=== PATIENT | male | born 2005 | race Caucasian/White ===

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

== ENCOUNTER 2025-01-15 12:41 | Outpatient (CLI) | payer BC, SELFPAY ==
--- NOTE | 2025-01-15 | ECHO_ITS ---
Patient Info Name: Jose Berry Age: 19 years : 2005 Gender: Male Ht: 72 in Wt: 127 lbs BSA: 1.69 m2 HR: 72 bpm BP: 142 / 82 mmHg Heart Rhythm: Sinus Rhythm Technical Quality: Fair Exam Date: 01/15/2025 1:02 PM Exam Location: Echo Lab Patient Status: Outpatient Admit Date: 01/15/2025 Staff Ordering Physician: MitchellRadha PA-C Detective [place]: Dora Zhang RDCS Attending Provider: Mitchell*Radha Wagn PA-C Exam Type: CA echo doppler color flow Study Info Indications - ATYPICAL CHEST PAIN Complete two-dimensional, color flow and Doppler transthoracic echocardiogram is performed. Summary 1. Complete two-dimensional, color flow and Doppler transthoracic echocardiogram is performed. 2. Left ventricular chamber dimension is normal. 3. Left ventricular systolic function is normal, estimated at 60-65%. 4. The left ventricular diastolic function is normal. 5. E/e' 5 is not elevated. Left Ventricle E/e' 5 is not elevated. Left ventricular chamber dimension is normal. Left ventricular systolic function is normal, estimated at 60-65%. The left ventricular diastolic function is normal. Right Ventricle Right ventricular systolic function is normal and with normal TAPSE 2.2 cm. Right ventricular chamber dimension is normal. Left Atria Left atrial chamber dimension is normal. Right Atria Right atrial chamber dimension is normal. Aortic Valve The aortic valve is trileaflet. There is no aortic valve stenosis. There is no aortic valve regurgitation. Pulmonic Valve There is no pulmonic regurgitation. Mitral Valve There is no mitral valve stenosis. There is no mitral valve regurgitation. Tricuspid Valve There is no tricuspid valve regurgitation. Pericardium/Pleural There is no pericardial effusion. Inferior Vena Cava Normal inferior vena cava with >50% collapse upon inspiration consistent with normal right atrial pressure, 5 mmHg. Aorta The aortic root size at the sinus of Valsalva is normal. Left Ventricular Outflow Tract Name Value Normal LVOT 2D LVOT Diameter 2.0 cm LVOT Doppler LVOT Peak Gradient 4 mmHg LVOT Mean Gradient 2 mmHg LVOT VTI 20 cm LVOT VTI/AV VTI Ratio 1.0 LVOT Stroke Volume 66 ml LVOT CO 4.7 l/min LVOT CI 2.8 l/min/m2 Pulmonic Valve Name Value Normal RVOT Doppler RVOT Peak Gradient 3 mmHg PV Doppler PV Peak Gradient 3 mmHg Mitral Valve Name Value Normal MV Doppler MV Decel Braxton 829 cm/s2 MV PHT 31 ms MV Area (PHT) 7.0 cm2 MV Diastolic Function MV E Peak Velocity 89 cm/s MV A Peak Velocity 65 cm/s MV E/A 1.4 MV Decel Time 108 ms MV Annular TDI MV E/e' (Septal) 5.2 MV E/e' (Lateral) 5.6 MV E/e' (Average) 5.4 Tricuspid Valve Name Value Normal Estimated PAP/RSVP RA Pressure 5 mmHg Aortic Valve Name Value Normal AV Doppler AV Peak Velocity 106 cm/s AV Peak Gradient 5 mmHg AV Mean Gradient 2 mmHg AV VTI 20 cm AV Area (Cont Eq VTI) 3.2 cm2 AV Area (Cont Eq Edgardo) 3.0 cm2 AV Regurgitation 2D LVOT Area 3.2 cm2 Ventricles Name Value Normal LV Dimensions 2D/MM IVS Diastolic Thickness (2D) 0.7 cm LVID Diastole (2D) 4.3 cm LVIW Diastolic Thickness (2D) 0.8 cm LVID Systole (2D) 2.6 cm LVOT Diameter 2.0 cm LV Mass (2D Cubed) 98.58 g LV Mass Index (2D Cubed) 58 g/m2 Relative Wall Thickness (2D) 0.38 LV Fractional Shortening/Ejection Fraction 2D/MM LV Fractional Shortening (2D) 39 % LV EF (2D Teicholz) 69 % LV Diastolic Volume (4C MOD) 144 ml LV EF (4C MOD) 64 % LV Diastolic Volume (2C MOD) 142 ml LV EF (2C MOD) 58 % LV Diastolic Volume (BP MOD) 146 ml LV Diastolic Volume Index (BP MOD) 86 ml/m2 LV Systolic Volume (BP MOD) 56 ml LV Systolic Volume Index (BP MOD) 33 ml/m2 LV EF (BP MOD) 62 % LV Diastolic Length (4C) 8.8 cm LV Systolic Length (4C) 7.6 cm LV Stroke Volume (4C MOD) 92 ml Atria Name Value Normal LA Dimensions LA Volume (4C A-L) 34 ml LA Volume (BP A-L) 41 ml RA Dimensions RA Area (4C) 10.6 cm2 Report Signatures
--- OUTSIDE RECORDS SUMMARY | 2025-01-15 12:45 | XMS_ITS ---
Author Organization [facility] Address [address] [facility] [address] [place] [address] Care Team Providers Care Vat Tender Name Role Phone Zoraida Spence Unavailable [phone] Vital Signs Height 72.00 in 03/13/2024 Weight 123.80 lbs 03/13/2024 BMI 16.8 kg/m2 03/13/2024 Height-cm 182.88 cm 03/13/2024 Weight-kg 56.15 kg 03/13/2024 Encounters Encounter Location Date Provider Diagnosis [facility] [address] [facility] [address] [place] [address] 03/13/2024 Zoraida Spence Generalized anxiety disorder F41.1 [...] * BARB AYALAOB:2005 ( 18 yo M)Acc No.[id number]:03/13/2024 Progress Notes Patient: AYSHA LEWIS Provider: NERISSA LOCK :2005 A ge:18 Y S ex:Male Date:03/13/2024 Address:[address] [place] [address] [id number] Subjective: * Chief Complaints: * * Medical [...] 03/13/2024 Generated for Kelsi goldberg/Regina/Kalinaitting on: 0 01/15/2025 12:45 PM CDT
--- OUTSIDE RECORDS SUMMARY | 2025-01-15 12:45 | XMS_ITS | Data Portability ---
Author Organization [facility] Address [address] [place] [address] Care Team Providers Care Web[employer] Commerce Consultant Name Role Phone DAVIDRADHA BEARD Primary Care Provider Unavailab le Assessment No assessment recorded. Plan of Treatment Reminders Order Date Submit Date Provider Last Modified By Organization Details Last Modified Time Details Appointments None recorded. Lab lipid panel, serum 2023 024 [facility], [address], [place], [address], 5 09:08:07 CMP, serum or plasma 2023 024 [facility], [address], [place], [address], 5 09:08:09 CBC w/ diff 2023 024 [facility], [address], [place], [address], 5 09:08:10 CBC w/ auto diff 2023 024 [email or web address] 0 [facility], [address], [place], [address], 5 16:38:08 hemoglobin A1c, QN, blood 2023 024 [email or web address] 0 [facility], [address], [place], [address], 5 16:37:37 TSH + free T4, serum 2023 024 [facility], [address], [place], [address], 09:08:08 Referral None recorded. Procedures None recorded. Surgeries None recorded. Imaging XR, chest, 2 view 2024 025 [facility] (Imaging), [facility]0 [facility] [address] [facility], [place], [address], 5 10:13:24 US, echocardiog tony, transthorac ic, complete, w/ color flow [address] (Cardiology & Emg), [address] [facility] [address] [place] [address], [address], 12:22:39 electrocard iogram 2024 025 [email or web address] In-Office Order, Internal Use Only DO Not Attach Compendium DO Not Attach Compendium, Do Not Delete/merge, [id number] 08:21:34 XR, ribs, unilateral 2024 025 [facility] (Imaging), [address] [facility] [address] [place] [address], [address], 5 01:35:25 XR, sternum [address] (Imaging), [address] [facility] [address], [place], [address], 5 09:53:54 Medication Orders clonazepam 0.5 mg tablet 2024 025 [id number], [address] [place] [address], [id number], 14:54:25 Patient TargetsNo targets recorded. Patient InstructionsNo instructions recorded. Reason for Referral Psychiatrist Referral for Mo od disorder Referring Physician: Radha Weldon, Internal Medicine, Encounter Date: 01/06/2025 Results Created Date Observation Date Name Description Value Unit Range Abnormal Flag Note LastModifiedBy Organization Detail LastModifiedTime 12/22/1912/23/2024 LIPID PANEL W/ CHOL/ HDL RATIO cholesterol, total 143 mg/dL 100-16 9 Not Available [facility] ([facility]) [address] [place], [address], 12/23/2024 09:08:07 12/22/19 25 12/23/2024 LIPID PANEL W/ CHOL/ HDL RATIO triglyceride s 54 mg/dL 0-89 Not Available [facility] ([facility]) [address] [place], [address], 12/23/2024 09:08:07 12/22/1912/23/2024 LIPID PANEL W/ CHOL/ HDL RATIO HDL cholesterol 75 mg/dL >39 Not Available [facility] ([facility]) [address] [place], [address], 12/23/2024 09:08:07 12/22/19 25 12/23/2024 LIPID PANEL W/ CHOL/ HDL RATIO VLDL cholesterol petrona 12 mg/dL 5-40 Not Available [facility] ([facility]) [address] [place], [address], 12/23/2024 09:08:07 12/22/19 25 12/23/2024 LIPID PANEL W/ CHOL/ HDL RATIO LDL chol calc ([facility]) 56 mg/dL 0-109 Not Available [facility] ([facility]) [address] [place], [address], 12/23/2024 09:08:07 12/22/19 25 12/23/2024 LIPID PANEL W/ CHOL/ HDL RATIO T. chol/HDL ratio 1.9 ratio 0.0-5. 0 T. Chol/ HDL Ratio Men Women 1/2 Avg.R isk 3.4 3.3 Avg.R isk 5.0 4.4 2X Avg.R isk 9.6 7.1 3X Avg.R isk 23.4 11.0 Not Available [facility] ([facility]) [address] [place], [address], 12/23/2024 09:08:07 12/22/19 25 12/23/2024 TSH+F REE T4 TSH 1.420 uIU/m L 0.450- 4.500 Not Available [facility] ([facility]) [address] [place], [address], 12/23/2024 09:08:08 12/22/19 25 12/23/2024 TSH+F REE T4 T4,free(dire ct) 1.59 NG/dL 0.93-1 .60 Not Available [facility] ([facility]) [address] [place], [address], 12/23/2024 09:08:08 12/22/19 25 12/23/2024 COMP. METAB OLIC PANEL (14) glucose 101 mg/dL 70-99 above high normal Not Available [facility] ([facility]) [address] [place], [address], 12/23/2024 09:08:09 12/22/19 25 12/23/2024 COMP. METAB OLIC PANEL (14) BUN 10 mg/dL 6-20 Not Available [facility] ([facility]) [address] [place], [address], 12/23/2024 09:08:09 12/22/19 25 12/23/2024 COMP. METAB OLIC PANEL (14) creatinine 0.86 mg/dL 0.76-1 .27 Not Available [facility] ([facility]) [address] [place], [address], 12/23/2024 09:08:09 12/22/19 25 12/23/2024 COMP. METAB OLIC PANEL (14) eGFR 128 mL/mi n/1.7 3 >59 Not Available [facility] ([facility]) [address] [facility], [place], [address], 12/23/2024 09:08:09 12/22/19 25 12/23/2024 COMP. METAB OLIC PANEL (14) BUN/creatini ne ratio 12 9-20 Not Available [facility] ([facility]) [address] [facility], [place], [address], 12/23/2024 09:08:09 12/22/19 25 12/23/2024 COMP. METAB OLIC PANEL (14) sodium 138 mmol/ L 134-14 4 Not Available [facility] ([facility]) [address] [facility], [place], [address], 12/23/2024 09:08:09 12/22/19 25 12/23/2024 COMP. METAB OLIC PANEL (14) potassium 4.3 mmol/ L 3.5-5. 2 Not Available [facility] ([facility]) [address] [facility], [place], [address], 12/23/2024 09:08:09 12/22/19 25 12/23/2024 COMP. METAB OLIC PANEL (14) chloride 100 mmol/ L 96-106 Not Available [facility] ([facility]) [address] [facility], [place], [address], 12/23/2024 09:08:09 12/22/19 25 12/23/2024 COMP. METAB OLIC PANEL (14) carbon dioxide, total 23 mmol/ L 20-29 Not Available [facility] ([facility]) [address] [place], [address], 12/23/2024 09:08:09 12/22/19 25 12/23/2024 COMP. METAB OLIC PANEL (14) calcium 9.7 mg/dL 8.7-10 .2 Not Available [facility] ([facility]) [address], [place], [address], 12/23/2024 09:08:09 12/22/19 25 12/23/2024 COMP. METAB OLIC PANEL (14) protein, total 6.8 g/dL 6.0-8. 5 Not Available [facility] ([facility]) [address] [place], [address], 12/23/2024 09:08:09 12/22/19 25 12/23/2024 COMP. METAB OLIC PANEL (14) albumin 4.9 g/dL 4.3-5. 2 Not Available [facility] ([facility]) [address] [place], [address], 12/23/2024 09:08:09 12/22/19 25 12/23/2024 COMP. METAB OLIC PANEL (14) globulin, total 1.9 g/dL 1.5-4. 5 Not Available [facility] ([facility]) [address], [place], [address], 12/23/2024 09:08:09 12/22/19 25 12/23/2024 COMP. METAB OLIC PANEL (14) bilirubin, total 0.7 mg/dL 0.0-1. 2 Not Available [facility] ([facility]) [address], [place], [address], 12/23/2024 09:08:09 12/22/19 25 12/23/2024 COMP. METAB OLIC PANEL (14) alkaline phosphatase 88 IU/L 51-125 Not Available [facility] ([facility]) [address] [place], [address], 12/23/2024 09:08:09 12/22/19 25 12/23/2024 COMP. METAB OLIC PANEL (14) AST (SGOT) 18 IU/L 0-40 Not Available [facility] ([facility]) [address] [place], [address], 12/23/2024 09:08:09 12/22/19 25 12/23/2024 COMP. METAB OLIC PANEL (14) ALT (SGPT) 12 IU/L 0-44 Not Available [facility] ([facility]) [address] [facility], [place], [address], 12/23/2024 09:08:09 12/22/1912/23/2024 CBC/D /PLT W/ REFLE X SUMA TIN WBC 5.7 x10e3 /uL 3.4-10 .8 Not Available [facility] ([facility]) [address] [place], [address], 12/23/2024 09:08:09 12/22/1912/23/2024 CBC/D /PLT W/ REFLE X SUMA TIN RBC 5.29 x10e6 /uL 4.14-5 .80 Not Available [facility] ([facility]) [address] [facility], [place], [address], 12/23/2024 09:08:09 12/22/1912/23/2024 CBC/D /PLT W/ REFLE X SUMA TIN hemoglobin 15.4 g/dL 13.0-1 7.7 Not Available [facility] ([facility]) [address] [place], [address], 12/23/2024 09:08:09 12/22/1912/23/2024 CBC/D /PLT W/ REFLE X SUMA TIN hematocrit 47.5 % 37.5-5 1.0 Not Available [facility] ([facility]) [address] [place], [address], 12/23/2024 09:08:09 12/22/1912/23/2024 CBC/D /PLT W/ REFLE X SUMA TIN MCV 90 fL 79-97 Not Available [facility] ([facility]) [address] [place], [address], 12/23/2024 09:08:09 12/22/19 25 12/23/2024 CBC/D /PLT W/ REFLE X SUMA TIN MCH 29.1 pg 26.6-3 3.0 Not Available [facility] ([facility]) [address] [facility], [place], [address], 12/23/2024 09:08:09 12/22/19 25 12/23/2024 CBC/D /PLT W/ REFLE X SUMA TIN MCHC 32.4 g/dL 31.5-3 5.7 Not Available [facility] ([facility]) [address] [facility], [place], [address], 12/23/2024 09:08:09 12/22/1912/23/2024 CBC/D /PLT W/ REFLE X SUMA TIN RDW 12.6 % 11.6-1 5.4 Not Available [facility] ([facility]) [address] [facility], [place], [address], 12/23/2024 09:08:09 12/22/1912/23/2024 CBC/D /PLT W/ REFLE X SUMA TIN platelets 330 x10e3 /uL 150-45 0 Not Available [facility] ([facility]) [address] [facility], [place], [address], 12/23/2024 09:08:09 12/22/1912/23/2024 CBC/D /PLT W/ REFLE X SUMA TIN neutrophils 53 % notest ab. Not Available [facility] ([facility]) [address] [facility], [place], [address], 12/23/2024 09:08:09 12/22/19 25 12/23/2024 CBC/D /PLT W/ REFLE X SUMA TIN lymphs 35 % notest ab. Not Available [facility] ([facility]) [address] [facility], [place], [address], 12/23/2024 09:08:09 12/22/19 25 12/23/2024 CBC/D /PLT W/ REFLE X SMUA TIN monocytes 9 % notest ab. Not Available [facility] ([facility]) [address] [facility], [place], [address], 12/23/2024 09:08:09 12/22/19 25 12/23/2024 CBC/D /PLT W/ REFLE X SUMA TIN eos 2 % notest ab. Not Available [facility] ([facility]) [address] [facility], [place], [address], 12/23/2024 09:08:09 12/22/19 25 12/23/2024 CBC/D /PLT W/ REFLE X SUMA TIN basos 1 % notest ab. Not Available [facility] ([facility]) [address] [facility], [place], [address], 12/23/2024 09:08:09 12/22/19 25 12/23/2024 CBC/D /PLT W/ REFLE X SUMA TIN neutrophils (absolute) 3.0 x10e3 /uL 1.4-7. 0 Not Available [facility] ([facility]) [address] [facility], [place], [address], 12/23/2024 09:08:09 12/22/19 25 12/23/2024 CBC/D /PLT W/ REFLE X SUMA TIN lymphs (absolute) 2.0 x10e3 /uL 0.7-3. 1 Not Available [facility] ([facility]) [address] [place], [address], 12/23/2024 09:08:09 12/22/19 25 12/23/2024 CBC/D /PLT W/ REFLE X SUMA TIN monocytes(ab solute) 0.5 x10e3 /uL 0.1-0. 9 Not Available [facility] ([facility]) [address] [place], [address], 12/23/2024 09:08:09 12/22/1912/23/2024 CBC/D /PLT W/ REFLE X SUMA TIN eos (absolute) 0.1 x10e3 /uL 0.0-0. 4 Not Available [facility] ([facility]) [address] [facility], [place], [address], 12/23/2024 09:08:09 12/22/19 25 12/23/2024 CBC/D /PLT W/ REFLE X SUMA TIN baso (absolute) 0.1 x10e3 /uL 0.0-0. 2 Not Available [facility] ([facility]) [address] [facility], [place], [address], 12/23/2024 09:08:09 12/22/19 25 12/23/2024 CBC/D /PLT W/ REFLE X SUMA TIN immature granulocytes 0 % notest ab. Not Available [facility] ([facility]) [address] [facility], [place], [address], 12/23/2024 09:08:09 12/22/1912/23/2024 CBC/D /PLT W/ REFLE X SUMA TIN immature grans (abs) 0.0 x10e3 /uL 0.0-0. 1 Not Available [facility] ([facility]) [address] [facility], [place], [address], 12/23/2024 09:08:09 12/22/1912/23/2024 HEMOG LOBIN A1C hemoglobin A1C 5.4 % 4.8-5. 6 Predi abete s: 5.7 - 6.4 Diabe tammie: >6.4 Glyce ramses contr ol for adult s with diabe tammie: <7.0 Not Available [facility] ([facility]) [address] [place], [address], 12/23/2024 09:08:10 12/24/19 25 12/28/2024 ronn king am No observ ation record ed. [facility] In-Office Order Internal Use Only DO Not Attach Compendium DO Not Attach Compendium, Do Not Delete/merge, [id number] 12/28/2024 10:37:26 12/28/19 25 12/27/2024 XR, chest , 2 view No observ ation record ed. [address], [place], [address], 12/28/2024 11:24:24 12/28/19 25 12/28/2024 XR, ribs, unila teral No observ ation record ed. [facility] [address] [facility] [address], [place], [address], 12/29/2024 15:42:36 Result Notes None recorded. Problems Name Problem SNOMED Code Status Onset Date Resolution Date Notes Provider Name and Address Organization Details Recorded Time Mixed anxiety and depressive disorder 150361476 Active 2023 EM Diamond Attn: Dora alexander,[address] [place], [address], [place] [facility] 4 23:10:38 Long-term drug therapy Active 2023 EM Diamond Attn: Dora alexander,[address] [place], [address], [place] [facility] 4 23:10:40 Body mass index less than 20 348152679 Active 2023 EM Diamond Attn: Dora alexander,[address] [place], [address], [place] [facility] 4 23:10:41 Panic attack 406243262 Active 2024 EM Diamond Attn: Dora alexander,[address] [place], [address], [place] [facility] 5 08:21:41 Generalized anxiety disorder 69846077 Active 2024 EM Diamond Attn: Dora alexander,[address], [place], [address], [place] [facility] 5 08:21:42 Bipolar II disorder 28788819 Active 2024 EM Diamond Attn: Dora alexander,[address], [place], [address], [place] [facility] 5 08:21:54 Positive screening for depression on PHQ-9 (Patient Health Questionnai re 9) 0055042868793 00 Active 2024 EM Diamond Attn: Dora alexander,[address], [place], [address], [place] [facility] 5 08:22:19 Problem Notes None recorded. Procedures Surgical History None recorded. Imaging Results Imaging Date Name Status LastModified by Organization Details LastModified Time 12/28/2024 electrocardiogram completed [facility] In-Off ce Order Internal Use Only DO Not Attach Compendium DO Not Attach Compendium, Do Not Delete/merge, [id number] 12/28/2024 10:37:26 12/27/2024 XR, chest, 2 view completed [address], [address], 12/28/2024 11:24:24 12/28/2024 XR, ribs, unilateral completed [address], [address], 12/29/2024 15:42:36 Procedure Notes None recorded. Medical Equipment None [...] Available Not Available clonazepam 0.5 mg tablet TAKE 1 TABLET BY MOUTH THREE TIMES DAILY NEEDED FOR PANIC ATTACKS active Not Available Not Available No t Available lamotrigine 25 mg tablet TAKE 2 TABLETS BY MOUTH TWICE DAILY active Not Available Not Available No t Available buspirone 10 mg tablet TAKE 1 TABLET BY MOUTH TWICE DAILY active Not Available Not Available No t Available methylpheni date ER 36 mg tablet,exte nded release 24 hr TAKE 1 TABLET BY MOUTH EVERY DAY active Not Available Not Available No t [...] Address Organization Details Last Updated DateTime 4 [address]87[address].6 5 g 17.6 kg/m2 1 % 182.88 cm 18 /min 99 % 99 % 90 /min 128 mm[Hg] 82 mm[Hg] Raj Schwartz MA [facility] 4 12:02:51 Date Recorded Systolic blood pressure Diastolic blood pressure Provider Name and Address Organization Details Last Updated DateTime 03/12/2024 130 mm[Hg] 90 mm[Hg] EM Diamond Attn: Accounting[address] [place], [address], [place] - [place] 03/12/2024 12:34:03 Date Recorded Body height Body mass index (BMI) Percentile per age and sex Body mass index (BMI) Body weight Respiratory rate Oxygen saturation Oxygen saturation in Arterial blood by Pulse oximetry Heart rate Systolic blood pressure Diastolic blood pressure Provider Name and Address Organization Details Last Updated DateTime 5 182.88 cm 1 % 17.5 kg/m2 97632.4 2 g 18 /min 100 % 100 % 75 /min 126 mm[Hg] 72 mm[Hg] Raj Schwartz MA [facility] 5 14:15:51 Date Recorded Systolic blood pressure Diastolic blood pressure Provider Name and Address Organization Details Last Updated DateTime 12/24/2024 120 mm[Hg] 80 mm[Hg] EM Diamond Attn: Accounting[address] [facility], [place], [address], [facility] 12/24/2024 14:54:51 Date Recorded Body height Body mass index (BMI) Body mass index (BMI) Percentile per age and sex Body weight Oxygen saturation Oxygen saturation in Arterial blood by Pulse oximetry Heart rate Systolic blood pressure Diastolic blood pressure Provider Name and Address Organization Details Last Updated DateTime 182.88 cm 17.2 kg/m2 1 % 15460.2 3 g 98 % 98 % 70 /min 122 mm[Hg] 78 mm[Hg] Raj Schwartz MA [facility] 10:17:02 Social History Question Answer Notes LastModified by That{img}at ion Details LastModified Time Tobacco Smoking Status Never Smoker Raj Schwartz MA null, [facility] 03/12/2024 12:00:52 Do You Have An Advance [...] Date Of Your Most Recent Tobacco Screening? 01/06/2025 Information not available 01/06/2025 Do You Use Your Seat Belt Or [...] What Date Was Tobacco Cessation Counseling Provided? 01/06/2025 Information not available 01/06/2025 Do You Or Have You Ever Used Any Other Forms Of Tobacco Or Nicotine? No Information not available 03/12/2024 Sex: Male Functional Status Question Answer Note LastModified by Organizat ion Details LastModified Time Are you able [...] Skin Problems N Anemia N Heart Attack (DC) N Anxiety Disorder Y Diabetes N Muscle, [...] split virus, quadrivalent, preservative 8 completed Raj Efren [place], [place] [facility] 12/24/2024 14:13:15 Hib, unspecified formulation 7 completed Seanmelissa Schwartz [place] [facility] 12/24/2024 14:13:15 Hib, unspecified formulation 5 completed Raj Schwartz [place] [facility] 12/24/2024 14:13:15 Hib, unspecified formulation 5 completed Raj Efren [place] [facility] 12/24/2024 14:13:15 HPV9 8 completed Seanmelissa Schwartz [place] [facility] 12/24/2024 14:13:15 IPV 6 completed Seanmelissa Schwartz [place] [facility] 12/24/2024 14:13:15 IPV 5 completed Seanmelissa Schwartz [place] [facility] 12/24/2024 14:13:15 IPV 5 completed Raj Efren [place] [facility] 12/24/2024 14:13:16 MMR 6 completed Raj Schwartz [place] [facility] 12/24/2024 14:13:16 MMR 9 completed Seanmelissa Schwartz [place] [facility] 12/24/2024 14:13:16 meningococcal conjugate quadrivalent, MenACWY-TT (MCV4) 1 completed Raj Schwartz [place] null, [place] [...] [place] [facility] 12/24/2024 14:13:16 [id number] 9 completed Raj Schwartz [place] [facility] 12/24/2024 14:13:16 Influenza, split virus, trivalent, preservative 9 completed Raj Schwartz [place] [facility] 12/24/2024 14:13:16 Influenza, split virus, trivalent, preservative 0 completed Raj [place] [facility] 12/24/2024 14:13:16 Influenza, split virus, trivalent, preservative 1 completed [place] [facility] 12/24/2024 14:13:16 Influenza, split [...] [place] [facility] 12/24/2024 14:13:16 Novel [id number], nasal 9 completed Raj Schwartz MA null, [...] virus, quadrivalent, PF 7 completed Raj Schwartz [place] [facility] 12/24/2024 14:13:16 Influenza, split virus, quadrivalent, PF 9 completed Raj Schwartz [place] [facility] 12/24/2024 14:13:16 Influenza, split virus, quadrivalent, PF 0 completed Raj Schwartz [place] [facility] 12/24/2024 14:13:16 Influenza, split virus, quadrivalent, PF 1 completed Raj Schwartz [place] [facility] 12/24/2024 14:13:16 Influenza, split virus, quadrivalent, PF 5 completed Raj Schwartz [place] [facility] 12/24/2024 14:13:16 meningococcal B, OMV 3 completed Raj Schwartz [place] [facility] 01/06/2025 10:15:24 meningococcal B, OMV 1 completed Raj Schwartz [place] [facility] 01/06/2025 10:15:24 Past Encounters Encounter ID Performer Location Encounter Start Date Encounter Closed Date Diagnosis/Indication Diagnosis SNOMED-CT Code Diagnosis ICD10 Code Diagnosis Note [id number] EM Diamond [facility] [place] [address] [place] [address] 03/12/2024 11:48:18 03/12/2024 12:38:52 Adult health examination 430281496 Z00.00 new pt wellness exam completed. Mixed anxi ety and depressive disorder 749930804 F41.8 stable on duloxetine 60mg daily. Long-term drug therapy 729319405 Z79.899 cmp, cbc and b12, folate labs are due Body mass index less than 20 137859148 Z68.1 screening TFT panel for low BMI evaluation . Diabetes gerson whatleyitus screening 733493592 Z13.1 a1c screening ordered for baseline evaluation . Cholesterol screening 27 3448611 Z13.220 fasting lipids ordered for baseline evaluation . [id number] EM Diamond [facility] [address] [place] [address] 12/24/2024 13:59:50 12/24/2024 15:22:06 Body mass index less than 20 312259132 Z68.1 BMI is 17.5 Positive s creening for depression on PHQ-9 (Patient Health Questionnaire 9) 7865413850 19234 Z13.31 Patient scored a 13 on screening today and measures are in place to evaluate his symptoms and he needs to get establishe d with Psychiatry locally. Atypical chest pain 1025 51526 R07.89 EKG completed in the office. Some variant abnormalit y we will send for a complete echo Doppler and chest x-ray. Panic attack 013521311 F 41.0 Prescripti on for clonazepam for panic attack use only up to 3 times a day Generalize d anxiety disorder 87104829 F41.1 Patient will need to be establishe d again with a psychiatri locally. Currently he is on BuSpar 10 mg twice daily for his anxiety Bipolar II disorder 8322 5003 F31.81 For bipolar type 2 patient is on lamotrigin e 50 mg daily Deformity of rib 7549268 07 M95.4 Send for x-ray of the ribs unilateral ly Pain of sternum 04843743 3 R07.2 Send for x-ray of the sternum as the patient is concerned about his chest wall anatomy [id number] EM Diamond [facility] [address] [place] [address] 01/06/2025 10:10:24 01/06/2025 12:41:23 Mood disorder 58544802 F39 Health Concerns Section Related Observation LastModified by Organization Detai ls LastModified Time None Recorded Concern Status LastModified by Organization Details LastModified Time None Recorded Advance Directives Directive N: Payers Encounter Date Sequence Insurance Name Policy Number Policy Maldonado Covered Member ID Maldonado Member ID Guarantor Name 03/12/2024 1 [place] [id number] Jose Berry [id number] Jose Berry 12/24/2024 1 [place] [id number] Jose Berry [id number] Jose Berry Notes Date Note Type Note Provider Name and Address Organization Details Recorded Time 03/12/2024 text/html Anxiety/Depressi onR eported bypatient.Notes:pt is seeing psychiatry (Zoraida Spence, JANA) and stable on duloxetine 60mg daily. Feeling pretty good on this medication, had tried others in the past. Pt here to have new pt wellness after transitioning from personal caregiver office. EM Diamond Attn: Accounting[address] [place], [address], [facility] 03/30/2024 23:11:10 12/24/2024 text/html Anxiety/Depressi onR eported bypatient.Notes:Kelsey childs has had significant increase in his generalized anxiety which is led to notable panic attacks causing a lot of physiologic symptoms including severe chest pain and shaking. He just moved home after leaving college in [place]. He had a specialist psychiatrist he was seeing in [place] that had diagnosed him with bipolar 2 disorder and attention deficit disorder. He has been on those medications for several months at this point and had been doing very well until recently. He is concerned significantly about there being healthcare problems and having cardiac issues. He is here for presentation. EM Diamond Attn: Accounting[address] [place], [address], [facility] 01/04/2025 08:35:37
--- OUTSIDE RECORDS SUMMARY | 2025-01-15 12:45 | XMS_ITS ---
Author Organization [facility] [employer] [facility] Address [address] [facility] [address] [place] [address] Care Team Providers Care Diet Kitchen Cook Name Role Phone Zoraida Spence Unavailable [phone] Migration, Provider Unavailable Unavailable REASON FOR VISIT EMR-Michael Encounters Encounter Location Date Provider Diagnosis [facility] [employer] [facility] [address] [facility] [address] [place] [address] 03/21/2024 Provider Migration Plan Of Treatment No Information Progress Notes * BARB AYALAOB:2005 ( 18 yo M)Acc No.[id number]:03/21/2024 Patient: AYSHA LEWIS :2005 A ge:18 Y S ex:Male Address:[address] [place] [address], [phone] Subjective: * Chief Complaints: * E MR-Michael * Medical History: * Surgical History: * Hospitalization/Major Diagno stic Procedure: * Medications: Objective: * Vitals: * Physical Examination: Assessment: Plan: * Treatment: * Procedure Codes: * true * Date: Generated for Printi ng/Faxing/eTransmitting on: 0 01/15/2025 12:44 PM CDT
--- OUTSIDE RECORDS SUMMARY | 2025-01-15 12:45 | XMS_ITS | Patient Health Record ---
Author Organization [facility] [employer] [facility] Address [address] [facility] [address] [facility] [address] [place] [address] Care Team Providers Care Embedded Systems Developer Name Role Phone Zoraida Spence Unavailable [phone] Migration, Provider Unavailable Unavailable Results Component Value [...] 03/13/2024 Encounters Encounter Location Date Provider Diagnosis [facility] [address] [facility] [address] [place] [address] 01/17/2024 Zoraida Spence Generalized anxiety disorder F41.1 ; Insomnia due to other mental disorder F51.05 and Major depressive disorder, recurrent, moderate F33.1 [facility] [address] [facility] [address] [place] [address] 02/14/2024 Zoraida Sierramarcos Major depressive disorder, recurrent, 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 [address] [address] 02/02/[address] [facility] [address] [facility] [address] [address] 03/08/[address] [facility] [address] [address] 03/21/2024 Provider Migration [place] [address] [address] 03/22/2024 Provider Migration Assessments Encounter Date Diagnosis [...] Insured Coverage Start Date Coverage End Date [facility] [address] [place] [address] [id number] AYSHA AYALA Self - patient is the insured
--- OUTSIDE RECORDS SUMMARY | 2025-01-15 12:45 | XMS_ITS ---
Author Organization [facility] [employer] [facility] Address [address] [place] [address] [place] [address] Care Team Providers Care Pipe Maker Name Role Phone Zoraida Spence Unavailable [phone] Migration, Provider Unavailable Unavailable REASON FOR VISIT EMR-Michael Medications Medication SIG (Take, Route, Frequency, Duration) Notes Start Date End Date Status Venlafaxine HCl ER 75 MG Oral 03/13/2024 Active Escitalopram Oxalate 10 MG Oral 03/13/2024 Active DULoxetine HCl 60 MG Oral 03/13/2024 Active Encounters Encounter Location Date Provider Diagnosis [facility] [address] [facility] [address] [place] [address] 03/22/2024 Provider Migration Plan Of Treatment No Information Progress Notes * BARB AYALAOB:2005 ( 18 yo M)Acc No.[id number]:03/22/2024 Patient: AYSHA LEWIS :2005 A ge:18 Y S ex:Male Address:[address] [place] [address], [id number] Subjective: * Chief Complaints: * E MR-Michael [...] Generated for Kelsi goldberg/Regina/Jose Manuel on: 0 01/15/2025 12:44 PM CDT
== END 2025-01-15 12:42 | disposition home or self-care (01) ==
PROVIDERS: PCP Physician Assistant; Visit Provider Physician Assistant
DX: R07.89 Other chest pain (principal)
CPT/HCPCS: 93306